=== PATIENT | female | born 1990 | race Caucasian/White ===

== ENCOUNTER 2021-04-22 12:46 | Outpatient (CLI) | payer OTHER | END 2021-04-22 12:47 | disposition home or self-care (01) | LOC: DTY/OP 12:46 | PROVIDERS: ATTEND Surgery | DX: E66.01 Morbid (severe) obesity due to excess calories (principal) | CPT/HCPCS: 97802 ==

== ENCOUNTER 2021-08-09 09:29 | Outpatient (CLI) | payer OTHER | END 2021-08-09 09:30 | disposition home or self-care (01) | LOC: DTY/OP 09:29 | PROVIDERS: ATTEND Surgery | DX: E66.01 Morbid (severe) obesity due to excess calories (principal) | CPT/HCPCS: 97802 ==

== ENCOUNTER 2022-03-27 13:04 | Outpatient (CLI) | payer BC ==
[2022-03-27 14:09] LABS: #Basophils 0.1 10x3/uL (0.0-0.2); #Eosinphils 0.2 10x3/uL (0.0-0.5); #Monocytes 0.5 10x3/uL (0.0-1.1); #Neutrophils 7.6 10x3/uL (1.5-8.4); %Basophils 0.4 % (0.0-2.0); %Lymphocytes 24.3 % (18.0-47.0); %Monocytes 4.8 % (0.0-10.0); %Neutrophils 68.1 % (40.0-75.0); Hemoglobin 12.5 g/dL (12.0-15.5); Mean Corpuscular HGB CONC 30.5 g/dL (32.0-36.0); Mean Corpuscular Hemoglobin 23.9 pg (27.0-33.0); Mean Corpuscular Volume 78.5 fl (81.6-98.3); Mean Platelet Volume 10.2 fl (7.4-10.4); Platelet Count 352 10x3/uL (150-450); RBC Distribution Width 16.8 % (11.5-14.5); Red Blood Cell (RBC) Count 5.22 10x6/uL (3.90-5.03); White Blood Cell (WBC) Count 11.1 10x3/uL (3.5-10.5)
[2022-03-27 14:37] LABS: BHCG - Serum Negative (NEGATIVE); Pregs Control Background? CLEAR/WHITE (CLR/WHITE); Pregs Control Bar Appear? YES (CONTROL BAR)
[2022-03-27 14:46] LABS: ALT (SGPT) 20 U/L (8-55); AST (SGOT) 20 U/L (5-34); Albumin 4.4 g/dL (3.5-5.0); Alkaline Phosphatase 74 U/L (40-110); Anion Gap 18 mmol/L (10-20); BUN (Urea Nitrogen) 13 mg/dL (7.0-18.7); Bilirubin, Total 0.5 mg/dL (0.2-1.2); Calc. Creatinine Clearance 0 mL/min (70-130); Calcium 9.3 mg/dL (7.8-10.44); Carbon Dioxide 24 mmol/L (22-29); Chloride 103 mmol/L (98-107); Globulin 3.1 g/dL (2.4-3.5); Glucose 85 mg/dL (70-105); Potassium 4.4 mmol/L (3.5-5.1); Protein, Total 7.5 g/dL (6.0-8.3); Sodium 141 mmol/L (136-145)
[2022-03-27 16:52] LABS: Hemoglobin A1c 5.4 % (4.0-6.0)
[2022-03-27 21:29] LABS: SARS-CoV-2 PCR by NAA Not Detected (NotDetected)
== END 2022-03-27 13:05 | disposition home or self-care (01) ==
LOC: LABBT 13:04
PROVIDERS: ATTEND Surgery
DX: Z01.818 Encounter for other preprocedural examination (principal); E66.01 Morbid (severe) obesity due to excess calories; Z20.822 Contact with and (suspected) exposure to COVID-19
CPT/HCPCS: 71046; 80053; 83036; 84703; 85025; 93005; 93010; U0003; U0005

== ENCOUNTER 2022-03-27 13:15 | Inpatient (IN) | payer BC ==
[2022-03-28 12:26] VITALS: BMI 52.9
[2022-04-01] MEDS ORDERED: Heparin 5,000 UNITS/ML VIAL ONE (06:20)
[2022-04-01] MEDS ORDERED: fentaNYL Citrate/PF 100 MCG/2 ML SYRINGE ONE (06:56)
[2022-04-01] MEDS ORDERED: Dexmedetomidine 200 MCG/2 ML VIAL ONE (06:56)
[2022-04-01] MEDS ORDERED: Bupivacaine 0.25% 10 ML VIAL ONE (07:03)
[2022-04-01] MEDS ORDERED: Lidocaine 1% w/Epinephrine 1:100K 20 ML VIAL ONE (07:03)
[2022-04-01] MEDS ORDERED: SUGAMMADEX SODIUM 200 MG/2 ML VIAL ONE (07:10)
[2022-04-01] MEDS ORDERED: Midazolam HCl 2 mg/2 ml Vial ONE (07:22)
[2022-04-01] MEDS ORDERED: CEFAZOLIN 2 GM VIAL ONE (07:23)
[2022-04-01] MEDS ORDERED: Sodium Chloride 0.9% 100 ML ONE (07:23)
[2022-04-01] MEDS ORDERED: Rocuronium Bromide 10 MG/ML (10ML VIAL) ONE (07:33)
[2022-04-01] MEDS ORDERED: Ondansetron PF 4 MG/2 ML Vial ONE ×3 (07:33→09:13)
[2022-04-01] MEDS ORDERED: PROPOFOL 200 MG/20 ML VIAL ONE (07:33)
[2022-04-01] MEDS ORDERED: Dexamethasone 20 MG/5 ML VIAL ONE (07:33)
[2022-04-01] MEDS ORDERED: Lidocaine 1% PF 5 ML VIAL ONE (07:33)
[2022-04-01] MEDS ORDERED: diphenhydrAMINE 25 MG CAP PO PRN (08:56)
[2022-04-01] MEDS ORDERED: diphenhydrAMINE 50 MG/ML VIAL IM PRN (08:56)
[2022-04-01] MEDS ORDERED: Ondansetron HCl/PF 4 MG/2 ML Vial IVP PRN (08:56)
[2022-04-01] MEDS ORDERED: Meperidine HCl/PF 25 MG/ML VIAL SLOW IVP PRN (08:56)
[2022-04-01] MEDS ORDERED: diphenhydrAMINE 50 MG/ML VIAL IVP PRN ×2 (08:56→09:27)
[2022-04-01] MEDS ORDERED: Naloxone HCl 0.4 mg/ml Vial IV PRN (08:56)
[2022-04-01] MEDS ORDERED: Ondansetron PF 4 MG/2 ML Vial IVP PRN ×2 (08:56→09:27)
[2022-04-01] MEDS ORDERED: fentaNYL Citrate/PF 2,000 MCG in Sodium Chloride 0.9% 60 ML IV PRN (08:56)
[2022-04-01] MEDS ORDERED: Promethazine HCl 25 MG/ML VIAL IM PRN ×3 (08:56→09:27)
[2022-04-01] MEDS ORDERED: Promethazine HCl 25 MG/ML VIAL IVPB PRN (08:56)
[2022-04-01] MEDS ORDERED: Zolpidem Tartrate 5 MG TAB PO PRN (08:56)
[2022-04-01] MEDS ORDERED: Fentanyl 100 MCG/2 ML VIAL ONE (08:59)
[2022-04-01] MEDS ORDERED: Communication Order-Pharmacy FS SCH (09:00)
[2022-04-01] MEDS ORDERED: Dextrose 5% in Water 1,000 ML IV PRN (09:27)
[2022-04-01] MEDS ORDERED: hydrALAZINE 20 MG/ML VIAL SLOW IVP PRN (09:27)
[2022-04-01] MEDS ORDERED: Hydrocodone-Acetamin 15 ML UDCUP PO PRN ×2 (09:27→10:52)
[2022-04-01] MEDS ORDERED: Dextrose 50% Abboject 50 ML SYRINGE SLOW IVP PRN (09:27)
[2022-04-01] MEDS ORDERED: HumaLOG 300 UNITS/3 ML VIAL SC PRN (09:27)
[2022-04-01] MEDS: Sodium Chloride 0.9% 1,000 ML IV SCH ×2 (17:30→18:29)
[2022-04-01] MEDS ORDERED: Enoxaparin Sodium 40 MG/0.4 ML SYRINGE SC SCH (21:00)
[2022-04-02 05:50] LABS: #Lymphocytes 1.9 thou/uL (1.20-3.40); #Monocytes 0.6 thou/uL (0.11-0.59); #Neutrophils 8.4 thou/uL (1.40-6.50); %Basophils 0.1 % (0.0-1.0); %Eosinophils 0.1 % (0.0-10.0); %Monocytes 5.3 % (0.0-10.0); %Neutrophils 77.4 % (42.0-75.0); Hemoglobin 11.6 g/dL (12.0-16.0); Mean Corpuscular HGB CONC 30.8 g/dL (32.0-36.0); Mean Corpuscular Volume 81.1 fL (78.0-98.0); Platelet Count 293 thou/uL (130-400); RBC Distribution Width 16.3 % (11.5-14.5); Red Blood Cell (RBC) Count 4.64 mill/uL (4.20-5.40); White Blood Cell (WBC) Count 10.9 thou/uL (4.8-10.8)
[2022-04-02] MEDS: Sodium Chloride 0.9% 1,000 ML IV SCH ×2 (06:22→10:15)
[2022-04-02 06:34] LABS: Anion Gap 13 mmol/L (10-20); BUN (Urea Nitrogen) 5 mg/dL (7.0-18.7); Calc. Creatinine Clearance 262 mL/min (70-130); Calcium 8.6 mg/dL (7.8-10.44); Carbon Dioxide 23 mmol/L (22-29); Chloride 106 mmol/L (98-107); Glucose 98 mg/dL (70-105); Sodium 138 mmol/L (136-145)
[2022-04-02] MEDS ORDERED: Pantoprazole 40 MG VIAL IVP SCH (09:00)
[2022-04-02 13:09] VITALS: BP 145/80; TEMP 98.2
== END 2022-04-02 13:30 | disposition home or self-care (01) | DRG 621 ==
LOC: SURG A 04-01 06:03 → SURG B 04-01 10:38
PROVIDERS: ADMIT Surgery; ATTEND Surgery
PROC: 0DB64Z3 Excision of Stomach, Percutaneous Endoscopic Approach, Vertical (ICD-10-PCS; principal; 2022-04-01)
PROC: 8E0W4CZ Robotic Assisted Procedure of Trunk Region, Percutaneous Endoscopic Approach (ICD-10-PCS; 2022-04-01)
DX: E66.01 Morbid (severe) obesity due to excess calories (principal); Z68.43 Body mass index [BMI] 50.0-59.9, adult; E11.9 Type 2 diabetes mellitus without complications; Z88.1 Allergy status to other antibiotic agents; Z87.891 Personal history of nicotine dependence; Z72.89 Other problems related to lifestyle
CPT/HCPCS: 36415; 36416; 80048; 85025; 88307; 94760; C9113; J1100; J1644; J1650; J2250; J2405; J2704; J3010; J3490; J7050; S0020